=== PATIENT | male | born 1985 | race Hispanic/Latino ===

== ENCOUNTER 2020-07-26 07:19 | Emergency (ER) | payer OTHER ==
[2020-07-26] MEDS ORDERED: ONDANSETRON HCL 4 MG/2 ML VIAL ONE (07:28)
[2020-07-26] MEDS ORDERED: SODIUM CHLORIDE 0.9% 1000ML 1,000 ML IV ONE (07:28)
[2020-07-26] MEDS ORDERED: MORPHINE 4 MG SYG (4MG/1ML) ONE (07:28)
[2020-07-26] MEDS ORDERED: DIAZEPAM 5 MG/ML 2 ML SYG ONE (07:29)
[2020-07-26] MEDS ORDERED: NITROGLYCERIN 1GM/1 INCH PACKET TD ONE (08:50)
[2020-07-26] MEDS ORDERED: ASPIRIN 325 MG TABLET ONE (08:50)
== END 2020-07-26 09:11 | disposition home or self-care (01) ==
LOC: EDH 07:19
DX: S53.104A Unspecified dislocation of right ulnohumeral joint, initial encounter (principal); S52.121A Displaced fracture of head of right radius, initial encounter for closed fracture; X58.XXXA Exposure to other specified factors, initial encounter; Y93.39 Activity, other involving climbing, rappelling and jumping off; Y92.89 Other specified places as the place of occurrence of the external cause; Y99.8 Other external cause status
CPT/HCPCS: 24655; 73070 ×2; 96374; 96375; 99284; J2270; J2405; J3360; J7030